=== PATIENT | male | born 1955 | race African-American/Black ===

== ENCOUNTER 2017-06-16 13:34 | Inpatient (IN) | END 2017-06-20 14:05 | disposition home or self-care (01) | DRG 313 ==

== ENCOUNTER 2017-07-17 18:12 | Emergency (ER) | END 2017-07-17 18:28 | disposition left against medical advice (07) ==

== ENCOUNTER 2017-09-22 22:20 | Inpatient (IN) | END 2017-09-24 13:00 | disposition home or self-care (01) | DRG 313 ==

== ENCOUNTER 2018-09-02 22:56 | Observation (INO) | payer MEDICARE, BC ==
[~2018-09-02] VITALS: Ht 172.7 cm; Wt 92.3 kg
[~2018-09-02 22:56] MED LIST: ALP2OP10 BOTH EYES; APIX5TAB PO; ATOR20TA65 PO; COSO10 BOTH EYES; ISOS30TA67 PO; METF500T24 PO; NITR0.4T32 SL; RANO500T2 PO; TAMS-14 PO; TRAV4OP25 BOTH EYES
[2018-09-03] MEDS ORDERED: morphine 4 MG/ML VIAL IV STA
[2018-09-03] MEDS ORDERED: ONDANSETRON 4 MG INJ IV STA
[2018-09-03] MEDS ORDERED: DOCUSATE SODIUM 100 MG CAP PO PRN (01:30)
[2018-09-03] MEDS ORDERED: BISACODYL (EC) 5 MG TAB PO PRN (01:30)
[2018-09-03] MEDS ORDERED: NACL 0.9% 3 ML SYG IV SCH (01:30)
[2018-09-03] MEDS ORDERED: NITROGLYCERIN (SL) 0.4 MG TAB SL PRN (01:30)
[2018-09-03] MEDS ORDERED: ACETAMINOPHEN 325 MG TAB PO PRN ×2 (01:30)
[2018-09-03] MEDS ORDERED: ONDANSETRON 4 MG INJ IV PRN ×2 (01:30)
[2018-09-03] MEDS ORDERED: ATOR40TA68 PO (02:30)
[2018-09-03] MEDS ORDERED: DUTA0.5C16 PO (02:30)
[2018-09-03 03:46] VITALS: BP 121/71; PULSE 81; RESP 18
[2018-09-03 04:13] VITALS: Ht 172.7 cm; Wt 92.3 kg
[2018-09-03 04:14] VITALS: BP 121/81; PULSE 82; RESP 18
[2018-09-03] MEDS: morphine 2 MG INJ IV PRN ×3 (04:25→21:28)
--- NOTE | 2018-09-03 05:06 | HP ---
Date/Time of Note Date/Time of Note DATE: 09/03/18 TIME: 04:56 Assessment/Plan VTE Prophylaxis Pharmacological prophylaxis: heparin Lines/Catheters IV Catheter Type (from Nrsg): Saline Lock Assessment/Plan Hospital Course This is a 62-year-old male being admitted to the telemetry floor for observation for: #1 chest pain: Rule out ACS. Will trend cardiac enzymes x3, the first that was negative. Will check an echocardiogram. PRN nitro/morphine for pain. Consult cardiology . #2 coronary disease: We will resume patient's home medications, will hold Eliquis at the current time in case patient needs to have any intervention performed, patient reported that he had a pacemaker placed as well however I do not see any pacer spikes will need interrogation. #3 pacemaker placement: Patient does have a pacemaker, however I do not see any pacer spikes. He is currently normal sinus rhythm. We will continue to monitor) telemetry. He will likely need interrogation will consult cardiology. #4 history of pulmonary movement: Patient has a history of a thrombectomy, IVC filter. He is currently on Eliquis ID. We will hold this at the current time in case there needs to be any intervention performed. #5 diabetes mellitus: Check hemoglobin A 1C, will hold metformin at the current time in case he needs to be a intervention performed #6 glaucoma: Continue patient's home eyedrop medications #7 hyperlipidemia: We will check lipid panel, continue statin #8 DVT GI prophylaxis: Heparin subcu, no GI prophylaxis indicated Further treatment strategy will be implemented as per the clinical course. Result Diagram: 09/02/18 2323 09/02/18 2325 Results 24hrs Laboratory Tests Test 09/02/18 23:25 White Blood Count 7.4 # Red Blood Count 4.10 L Hemoglobin 11.8 L Hematocrit 36.4 L Mean Corpuscular Volume 88.8 Mean Corpuscular Hemoglobin 28.8 L Mean Corpuscular Hemoglobin Concent 32.4 Red Cell Distribution Width 14.8 H Platelet Count 156 # Mean Platelet Volume 12.1 H Immature Granulocytes % 0.400 Neutrophils % 68.5 Lymphocytes % 17.1 Monocytes % 10.8 Eosinophils % 2.7 Basophils % 0.5 Nucleated Red Blood Cells % 0.0 Immature Granulocytes # 0.030 Neutrophils # 5.1 Lymphocytes # 1.3 Monocytes # 0.8 Eosinophils # 0.2 Basophils # 0.0 Nucleated Red Blood Cells # 0.0 Sodium Level 143 Potassium Level 3.5 Chloride Level 109 Carbon Dioxide Level 25 Anion Gap 9 Blood Urea Nitrogen 14 Creatinine 0.95 Est Glomerular Filtrat Rate mL/min > 60 Glucose Level 147 Calcium Level 9.2 Total Bilirubin 0.5 Direct Bilirubin 0.00 Indirect Bilirubin 0.5 Aspartate Amino Transf (AST/SGOT) 20 Alanine Aminotransferase (ALT/SGPT) 21 Alkaline Phosphatase 75 Troponin I < 0.012 B-Type Natriuretic Peptide 164 H Total Protein 6.7 Albumin 3.7 Globulin 3.00 Albumin/Globulin Ratio 1.23 HPI/ROS Admit Date/Time Admit Date/Time Sep 03, 2018 at 01:17 Hx of Present Illness Chief complaint: Left-sided chest pain This is a 62-year-old male with a past medical history of PE with thrombectomy in 2012, hx IVC filter placement on chronic ATC, diabetes mellitus, BPH, hyperlipidemia, glaucoma who presented to the emergency department with chest pain x1 day. Patient reports that he started having chest pain at approximately 9:30 PM. He states that it was a pressure-like sensation that radiated to the left side of his neck. He reported that the pain would come and go when he had some associated shortness of breath. Denies any swelling in his lower extremities. He does report that he went to the urgent care but it was closed to be called 911 and they brought him to the emergency department here. He states that the pain is currently subsided. Of note patient does have a left-sided pacemaker. However I do not see any pacemaker spikes on the telemetry or the EKG. Currently normal sinus rhythm at 88 bpm. Allergies: Coffee Aerobika, hydromorphone, iodine, shellfish Medications: Eliquis 5 mg p.o. twice daily Atorvastatin 30 mg 40 mg p.o. nightly Brimonidine tartrate 0.2% 1 drop in both eyes every 8 hours Dorzolamidetimolol 2% 1 drop in both eyes twice daily Dutasteride 0.5 mg p.o. daily Metformin 500 mg p.o. twice daily Nitroglycerin sublingual as needed Flomax 0.4 mg daily try dana 0.004% 1 drop both eyes nightly ROS Const: As per HPI Eyes : No pain discharge or redness or change in visual acuity ENT: No pain, sore throat, congestion, congestion, dysphagia or discharge Respiratory: No shortness of breath, cough, sputum, wheezing, or pleuritic pain Cardiovascular: As per HPI GI : no change in appetite, abdominal pain, nausea, vomiting, diarrhea, constipation, or change in the color his stool Genitourinary: No dysuria, hematuria, flank pain , discharge or CVA tenderness Musculoskeletal: No joint pain, back pain, neck pain, restricted range of motion in neck or joints Skin: No rash, bruising or hives Neuro: No headache, dizziness, syncope, seizure, focal weakness Endocrine: No polyuria, polydipsia, temperature intolerance Psych: No hallucination, depression, anxiety or suicidal ideation PMH/Family/Social Past Medical History PE with thrombectomy in 2013, hx IVC filter placement on chronic ATC, diabetes mellitus, BPH, hyperlipidemia, glaucoma, coronary artery disease Medications Current Medications Ondansetron HCl (Zofran Inj) 4 mg ER BRIDGE PRN IV NAUSEA/VOMITING; Start 09/03/18 at 01:30; Stop 09/04/18 at 01:29 Acetaminophen (Tylenol Tab) 650 mg ER BRIDGE PRN PO .MILD PAIN 1-3 OR TEMP; Start 09/03/18 at 01:30; Stop 09/04/18 at 01:29 IV Flush (NS 3 ml) 3 ml PER PROTOCOL IV ; Start 09/03/18 at 01:30 Ondansetron HCl (Zofran Inj) 4 mg Q6H PRN IV NAUSEA/VOMITING Last administered on 09/03/18at 04:32; Admin Dose 4 MG; Start 09/03/18 at 01:30 Nitroglycerin (Nitroglycerin (Sl Tab) 0.4 Mg) 1 tab Q5M PRN SL .CHEST PAIN; Start 09/03/18 at 01:30 Acetaminophen (Tylenol Tab) 650 mg Q6H PRN PO .PAIN 1-3 OR TEMP; Start 09/03/18 at 01:30 Morphine Sulfate (morphine) 2 mg Q4H PRN IV .PAIN 7-10 Last administered on 09/03/18at 04:25; Admin Dose 2 MG; Start 09/03/18 at 01:30 Docusate Sodium (Colace) 100 mg Q12H PRN PO .CONSTIPATION; Start 09/03/18 at 01:30 Bisacodyl (Dulcolax) 5 mg DAILY PRN PO .CONSTIPATION; Start 09/03/18 at 01:30 Coded Allergies: hydromorphone (Verified Allergy, Severe, 09/23/17) too strong for the pt Note: as per pt, Morphine is the choice of drug for pain for him, Dr Portillo is aware coffee (Coffea arabica) (Verified Allergy, Intermediate, 09/23/17) coffee(the drink)- can't tolerate shellfish derived (Verified Allergy, Intermediate, 09/23/17) rash iodine (Unverified Allergy, Unknown, 09/23/17) rash Past Surgical History Pacemaker placement Past Surgical Hx: other Family History Significant Family History: no pertinent family hx Social History Alcohol Use: none Smoking Status: Never smoker Drug Use: none Exam/Review of Systems Vital Signs Vitals Vital Signs Date Temp Pulse Resp B/P (MAP) Pulse Ox O2 O2 Flow FiO2 Time Delivery Rate 09/03/18 98.0 82 18 121/81 98 04:14 (94) 09/03/18 Room Air 03:46 Intake and Output 09/02/18 09/02/18 09/03/18 1515:00 23:00 07:00 IntakeIntake Total 250 ml BalanceBalance 250 ml Exam Exam General: Patient is a pleasant male currently lying in bed in no acute distress, he is currently reading a book HEENT: Atraumatic, normocephalic. The pupils are equal, round and reactive. Ex traocular motor are intact Neck: Supple with full range of motion. No rigidity or meningismus Chest: Surgical scar present Lungs: Clear to auscultation bilaterally no crackles rales or wheezing Heart: Normal S1-S2, Regular rhythm and rate. No murmur, S3, or S4 Abdomen: Obese, soft , nontender, nondistended , bowel sounds are present. No guarding no rebound tenderness , No masses or organomegaly. No costovertebral temporal angle mass Extremities: Normal to inspection, no edema no cyanosis Neurologic: Normal mental status, speech normal, cranial nerves II through XII are intact, motor and sensory are intact, no focal weakness Additional Comments EKG: Normal sinus rhythm at approximately 88 bpm, no ST or T wave noise concerning for acute ischemia. I do not see any pacemaker spikes on telemetry or on the EKG. PROCEDURE: XR Chest, 1 View CLINICAL INDICATION: Chest pain. TECHNIQUE: Frontal view of the chest. COMPARISON: 09/02/2018 at 1827 hours FINDINGS: LUNGS: Unremarkable. No consolidation. PLEURAL SPACE: Unremarkable. No pneumothorax. HEART: Mild cardiomegaly is noted. MEDIASTINUM: Unremarkable. BONES/JOINTS: Status post median sternotomy. TUBES, LINES AND DEVICES: There is a permanent pacemaker present. IMPRESSION: 1. No acute cardiopulmonary disease demonstrated. 2. There is no significant interval change from the previous study. RPTAT: [facility] Kin Summers Physician Classics Teacher Date Time Electronically viewed and signed by Kin Summers Physician Classics Teacher on 09/03/2018 00:14 RmC/ CC: CIRO MUÑOZ [phone] FILIBERTO HERRERA Sep 03, 2018 05:06
[2018-09-03] MEDS ORDERED: HEPARIN 5,000 UNIT/1 ML VIAL SC SCH (06:00)
[2018-09-03] MEDS: BRIMONIDINE 0.2% 5 ML BTL BOTH EYES SCH ×3 (06:48→21:28)
[2018-09-03 07:24] VITALS: BP 130/60; PULSE 82; RESP 18
[2018-09-03] MEDS: DUTASTERIDE 0.5 MG CAP PO SCH (09:27)
[2018-09-03] MEDS: DORZOLAMIDE/TIMOLOL/PF 0.2 ML DROPERETTE BOTH EYES SCH ×2 (09:27→20:51)
--- NOTE | 2018-09-03 10:05 | RADRPT ---
Echocardiogram Report Patient Name: CHERRIE JUNEPatient ID: [id number] : 1955 (62y 9m)Study Date: 09/03/2018 7:48:47 AM Gender: MAccession #: [id number] Tech: Deann Hough RDCS Location: [id number] Ref.Physician: FILIBERTO HERRERA Height(Cm): BSA: Weight(Kg): Quality: AdequateOrder Physician: FILIBERTO HERRERA Account #: Procedures: Echocardiographic Report: Transthoracic echocardiogram with complete 2D, M-Mode, and doppler examination. Indications: Chest Pain. Measurements: 2D/M Mode Doppler Measurement Value Normal Range Measurement Value Normal Range LVIDd 2D 4.5 [ 4.2 - 5.8 ] cm AV Peak Kenney 1.4 [ 100.0 - 170.0 ] cm/sec LVIDs 2D 2.4 [ 2.5 - 4.0 ] cm AV Peak PG 8.0 [ 2.0 - 9.0 ] mmHg LVPWd 2D 1.1 [ 0.6 - 1.0 ] cm LVOT Peak Kenney 1.1 [ 70.0 - 110.0 ] cm/sec IVSd 2D 1.3 [ 0.6 - 1.0 ] cm LVOT Peak PG 5.0 [ 2.0 - 6.0 ] mmHg AoR Diam 2D 3.2 [ 2.6 - 3.4 ] cm MV E Peak Kenney 0.9 [ 60.0 - 130.0 ] cm/sec EDV 2D 90.5 [ 62.0 - 150.0 ] ml MV A Peak Kenney 0.8 [ 100.0 - 120.0 ] cm/sec ESV 2D 21.0 [ 21.0 - 61.0 ] ml MV E/A 1.1 [ 0.8 - 1.5 ] ratio EF 2D 76.8 [ 52.0 - 72.0 ] percent MV Decel Time 165 [ 104 - 258 ] msec LA Dimen 2D 3.3 [ 3.0 - 4.0 ] cm Lat E` Kenney 0.2 [ 10.0 - 15.0 ] cm/sec Lateral E/E` 6.0 [ 1.0 - 2.0 ] ratio Med E` Kenney 0.1 cm/sec MV E/A 1.1 [ 0.8 - 1.5 ] ratio TR Peak Kenney 2.8 [ 100.0 - 280.0 ] cm/sec TR Peak PG 30.0 mmHg RVSP 40.0 [ 10.0 - 36.0 ] mmHg RA Pressure 10.0 mmHg Findings: Left Ventricle: Normal left ventricular systolic function. Normal left ventricular cavity size. Mild concentric left ventricular hypertrophy. Tissue Doppler/Mitral Doppler indices are within normal limits. Right Ventricle: Normal right ventricular size. Normal right ventricular systolic function. Left Atrium: The left atrium is normal in size. Right Atrium: The right atrium is normal in size. Mitral Valve: Mitral valve leaflets appear mildly thickened. Mild mitral annular calcification. Trace mitral regurgitation. Aortic Valve: No significant aortic stenosis or insufficiency. Aortic cusps appear mildly calcified. Tricuspid Valve: Normal appearance of the tricuspid valve. The estimated Peak RVSP is 40 mmHg. There is mild tricuspid regurgitation. Pulmonic Valve: Normal pulmonic valve appearance. Pericardium: Normal pericardium with no significant pericardial effusion. Aorta: Normal aortic root. IVC: Normal size and normal respiratory collapse consistent with normal right atrial pressure. Conclusions: Normal left ventricular systolic function. Normal left ventricular cavity size. Mild concentric left ventricular hypertrophy. Tissue Doppler/Mitral Doppler indices are within normal limits. Mitral valve leaflets appear mildly thickened. Mild mitral annular calcification. Trace mitral regurgitation. No significant aortic stenosis or insufficiency. Aortic cusps appear mildly calcified. Normal appearance of the tricuspid valve. The estimated Peak RVSP is 40 mmHg. There is mild tricuspid regurgitation. Normal size and normal respiratory collapse consistent with normal right atrial pressure. Electronically Signed By: Murphy Singer 2018-09-03 10:04:41 PDT
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
[2018-09-03 11:29] VITALS: BP 116/62; PULSE 70; RESP 18
[2018-09-03 15:44] VITALS: BP 127/66; PULSE 75; RESP 18
--- NOTE | 2018-09-03 17:20 | PN ---
Date/Time of Note Date/Time of Note DATE: 09/03/18 TIME: 17:15 Assessment/Plan VTE Prophylaxis Risk score (from Nsg)>0 risk: 2 SCD applied (from Nsg): No SCD contraindicated: other (no) Pharmacological prophylaxis: LMWH Lines/Catheters IV Catheter Type (from Nrsg): Saline Lock Assessment/Plan Assessment/Plan This is a 62 yo man with history of CAD and pulmonary embolism presents with acute chest pain. # Chest pain - Trop negative x3. - History of frequent ED visits for anginal chest pain. - At this point will likely need cardiac cath. In the past patient has refused cath at the last minute after getting premedication with prednisone and benadryl. - Plan to transfer to [facility] or [facility] for cath. Or if patient is asymptomatic for 24 hours will consider discharge. - Dr. Singer following. #Pulmonary embolism - On eliquis at home. Lovenox while inpatient. # diabetes mellitus: Check hemoglobin A 1C, will hold metformin at the current time in case he needs to be a intervention performed # glaucoma: Continue patient's home eyedrop medications # hyperlipidemia: We will check lipid panel, continue statin # DVT GI prophylaxis: Heparin subcu, no GI prophylaxis indicated Result Diagram: 09/03/18 0734 09/03/18 0734 Subjective 24 Hr Interval Summary Free Text/Dictation No acute overnight events. Patient reports chest pain has resolved. Exam/Review of Systems Exam Vitals Vital Signs Date Temp Pulse Resp B/P (MAP) Pulse Ox O2 O2 Flow FiO2 Time Delivery Rate 09/03/18 98.7 75 18 127/66 96 15:44 (86) 09/03/18 Room Air 03:46 Intake and Output 09/02/18 09/02/18 09/03/18 1515:00 23:00 07:00 IntakeIntake Total 250 ml BalanceBalance 250 ml Exam General: Patient is a pleasant male currently lying in bed in no acute distress, he is currently reading a book HEENT: Atraumatic, normocephalic. The pupils are equal, round and reactive. Extraocular motor are intact Neck: Supple with full range of motion. No rigidity or meningismus Chest: Sternotomy scar well healed, L upper chest AICD pocket. Lungs: Clear to auscultation bilaterally no crackles rales or wheezing Heart: Normal S1-S2, Regular rhythm and rate. No murmur, S3, or S4 Abdomen: Obese, soft , nontender, nondistended , bowel sounds are present. No guarding no rebound tenderness , No masses or organomegaly. No costovertebral temporal angle mass Extremities: Normal to inspection, no edema no cyanosis Results Results 24hrs Laboratory Tests Test 09/02/18 23:25 09/03/18 07:34 09/03/18 10:54 White Blood Count 7.4 # 6.2 Red Blood Count 4.10 L 3.98 L Hemoglobin 11.8 L 11.2 L Hematocrit 36.4 L 35.4 L Mean Corpuscular Volume 88.8 88.9 Mean Corpuscular Hemoglobin 28.8 L 28.1 L Mean Corpuscular Hemoglobin Concent 32.4 31.6 L Red Cell Distribution Width 14.8 H 14.8 H Platelet Count 156 # 145 Mean Platelet Volume 12.1 H 12.8 H Immature Granulocytes % 0.400 0.500 H Neutrophils % 68.5 66.7 Lymphocytes % 17.1 17.9 Monocytes % 10.8 11.9 H Eosinophils % 2.7 2.4 Basophils % 0.5 0.6 Nucleated Red Blood Cells % 0.0 0.0 Immature Granulocytes # 0.030 0.030 Neutrophils # 5.1 4.1 Lymphocytes # 1.3 1.1 Monocytes # 0.8 0.7 Eosinophils # 0.2 0.2 Basophils # 0.0 0.0 Nucleated Red Blood Cells # 0.0 0.0 Sodium Level 143 141 Potassium Level 3.5 3.6 Chloride Level 109 108 Carbon Dioxide Level 25 24 Anion Gap 9 9 Blood Urea Nitrogen 14 13 Creatinine 0.95 0.91 Est Glomerular Filtrat Rate mL/min > 60 > 60 Glucose Level 147 263 #H Calcium Level 9.2 8.6 Total Bilirubin 0.5 0.5 Direct Bilirubin 0.00 0.00 Indirect Bilirubin 0.5 0.5 Aspartate Amino Transf (AST/SGOT) 20 20 Alanine Aminotransferase (ALT/SGPT) 21 22 Alkaline Phosphatase 75 71 Troponin I < 0.012 < 0.012 < 0.012 B-Type Natriuretic Peptide 164 H Total Protein 6.7 6.0 L Albumin 3.7 3.2 L Globulin 3.00 2.80 Albumin/Globulin Ratio 1.23 1.14 Hemoglobin A1c 6.7 H Magnesium Level 1.8 Creatine Kinase 123 119 Creatine Kinase Index 1.6 1.5 Creatinine Kinase MB (Mass) 1.94 1.77 Triglycerides Level 195 H Cholesterol Level 140 LDL Cholesterol, Calculated 62 HDL Cholesterol 39 Cholesterol/HDL Ratio 3.5 Thyroid Stimulating Hormone (TSH) 2.860 Medications Medication Current Medications Ondansetron HCl (Zofran Inj) 4 mg ER BRIDGE PRN IV NAUSEA/VOMITING; Start 09/03/18 at 01:30; Stop 09/04/18 at 01:29 Acetaminophen (Tylenol Tab) 650 mg ER BRIDGE PRN PO .MILD PAIN 1-3 OR TEMP; Start 09/03/18 at 01:30; Stop 09/04/18 at 01:29 IV Flush (NS 3 ml) 3 ml PER PROTOCOL IV ; Start 09/03/18 at 01:30 Ondansetron HCl (Zofran Inj) 4 mg Q6H PRN IV NAUSEA/VOMITING Last administered on 09/03/18at 04:32; Admin Dose 4 MG; Start 09/03/18 at 01:30 Nitroglycerin (Nitroglycerin (Sl Tab) 0.4 Mg) 1 tab Q5M PRN SL .CHEST PAIN; Start 09/03/18 at 01:30 Acetaminophen (Tylenol Tab) 650 mg Q6H PRN PO .PAIN 1-3 OR TEMP; Start 09/03/18 at 01:30 Docusate Sodium (Colace) 100 mg Q12H PRN PO .CONSTIPATION; Start 09/03/18 at 01:30 Bisacodyl (Dulcolax) 5 mg DAILY PRN PO .CONSTIPATION; Start 09/03/18 at 01:30 Atorvastatin Calcium (Lipitor) 40 mg QHS PO ; Start 09/03/18 at 21:00 Brimonidine Tartrate (Alphagan 0.2%) 1 drop Q8 BOTH EYES Last administered on 09/03/18at 13:40; Admin Dose 1 DROP; Start 09/03/18 at 06:00 Dorzolamide/ Timolol (Cosopt Pf Eye Drops) 1 drop BID BOTH EYES Last administered on 09/03/18at 09:27; Admin Dose 1 DROP; Start 09/03/18 at 09:00 Dutasteride (Avodart) 0.5 mg DAILY PO Last administered on 09/03/18at 09:27; Admin Dose 0.5 MG; Start 09/03/18 at 09:00 Tamsulosin HCl (Flomax) 0.4 mg DAILY@2100 PO ; Start 09/03/18 at 21:00 Latanoprost (Xalatan) 1 drop HS BOTH EYES ; Start 09/03/18 at 21:00 Enoxaparin Sodium (Lovenox) 90 mg Q12 SC ; Start 09/03/18 at 21:00 KAMILLE CALIXTO MD Sep 03, 2018 17:20
[2018-09-03 19:27] VITALS: BP 116/75; PULSE 73; RESP 18
[2018-09-03] MEDS: TAMSULOSIN (SR) 0.4 MG CAP PO SCH (20:51)
[2018-09-03] MEDS: ATORVASTATIN 40 MG TAB PO SCH (20:51)
[2018-09-03] MEDS: LATANOPROST 0.005% 2.5 ML OPH BOTH EYES SCH (20:52)
[2018-09-03] MEDS ORDERED: TRAVOPROST 0.004% 2.5 ML OPH BOTH EYES SCH (21:00)
[2018-09-03] MEDS: ENOXAPARIN 100 MG/ML SYG SC SCH (21:11)
[2018-09-04] VITALS: BP 120/72; PULSE 75; RESP 18
[2018-09-04] MEDS: morphine 2 MG INJ IV PRN ×2 (04:25→10:35)
[2018-09-04 04:34] VITALS: BP 117/75; PULSE 73; RESP 18
[2018-09-04] MEDS: BRIMONIDINE 0.2% 5 ML BTL BOTH EYES SCH ×3 (05:35→22:00)
[2018-09-04 07:35] VITALS: BP 104/65; PULSE 68; RESP 18
[2018-09-04] MEDS: DORZOLAMIDE/TIMOLOL/PF 0.2 ML DROPERETTE BOTH EYES SCH ×2 (09:25→21:11)
[2018-09-04] MEDS: DUTASTERIDE 0.5 MG CAP PO SCH (09:25)
[2018-09-04] MEDS: ENOXAPARIN 100 MG/ML SYG SC SCH ×2 (09:26→21:18)
[2018-09-04 11:04] VITALS: BP 123/65; PULSE 68; RESP 18
--- NOTE | 2018-09-04 14:40 | PDOCDIS ---
Discharge Instructions DIAGNOSIS Discharge Diagnosis Noncardiac chest pain CONDITION [id number] Patient Condition: [id number] Fair HOME CARE INSTRUCTIONS: [id number] Diet Instructions: [id number] Low Fat /Cholesterol ACTIVITY: [id number] Activity Restrictions: [id number] No Restrictions FOLLOW UP/APPOINTMENTS Follow-up Plan 1. 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 2. Make an appointment with your primary care doctor in 1-2 weeks. 3. For pressure-like chest discomfort that does not resolve with rest, return to the emergency room. KAMILLE CALIXTO MD Sep 04, 2018 14:40
[2018-09-04 15:26] VITALS: BP 121/71; PULSE 68; RESP 18
--- NOTE | 2018-09-04 17:08 | CONS ---
Consult Date/Type/Reason Admit Date/Time Sep 03, 2018 at 01:17 Initial Consult Date 09/03/18 Type of Consultation: CV Requesting Provider: FILIBERTO HERRERA Date/Time of Note DATE: 09/04/18 TIME: 17:03 Subjective Cardiology follow-up progress note Subjective: Discussed with the staff. Discussed with the physicians. PT still c/o sharp shooting left sided chest pain lasting 15 seconds and he has been asking for morphine for it stress test was ordered today but he refused his recent stress test results was obtained which shows no reversible ischemia O: General: no acute distress HEENT: NC/AT. pupils are equal. round. NECK: NO JVD. no stridor. CV: RRR. systolic murmur; no gallop or rubs. PULM: no wheezing or rhonchi. GI: SOFT, NT, ND, no rebound or guarding Extremity: trace B/L LE edema. no clubbing. neuro: awake and alert, OX3. Psych: calm and pleasant rectal: deferred : normal EKG normal sinus rhythm patient enlargement otherwise normal ECG Echocardiogram was personally reviewed showed normal LV size and systolic function: lexiscan 08/07/18 done at [facility] shows mild NONreversible perfusionabn in inf wall which favor soft tissue attenuation Objective Vitals Vital Signs Date Temp Pulse Resp B/P (MAP) Pulse Ox O2 O2 Flow FiO2 Time Delivery Rate 09/04/18 98.0 68 18 121/71 96 Room Air 15:26 (88) Intake and Output 09/03/18 09/03/18 09/04/18 1515:00 23:00 07:00 IntakeIntake Total 500 ml BalanceBalance 500 ml Results/Medications Result Diagram: 09/04/18 0555 09/04/18 0555 Results 24 hrs Laboratory Tests Test 09/04/18 05:55 White Blood Count 6.1 Red Blood Count 4.43 L Hemoglobin 12.4 L Hematocrit 39.1 L Mean Corpuscular Volume 88.3 Mean Corpuscular Hemoglobin 28.0 L Mean Corpuscular Hemoglobin Concent 31.7 L Red Cell Distribution Width 14.7 H Platelet Count 154 Mean Platelet Volume 11.6 H Immature Granulocytes % 0.500 H Neutrophils % 68.8 Lymphocytes % 17.0 Monocytes % 10.4 Eosinophils % 2.8 Basophils % 0.5 Nucleated Red Blood Cells % 0.0 Immature Granulocytes # 0.030 Neutrophils # 4.2 Lymphocytes # 1.0 Monocytes # 0.6 Eosinophils # 0.2 Basophils # 0.0 Nucleated Red Blood Cells # 0.0 Sodium Level 138 Potassium Level 4.0 Chloride Level 107 Carbon Dioxide Level 23 Anion Gap 8 Blood Urea Nitrogen 13 Creatinine 0.98 Est Glomerular Filtrat Rate mL/min > 60 Glucose Level 168 Calcium Level 9.0 Magnesium Level 1.9 Total Bilirubin 0.6 Direct Bilirubin 0.00 Indirect Bilirubin 0.6 Aspartate Amino Transf (AST/SGOT) 20 Alanine Aminotransferase (ALT/SGPT) 27 Alkaline Phosphatase 67 Creatine Kinase 91 Creatine Kinase Index 1.5 Creatinine Kinase MB (Mass) 1.33 Troponin I < 0.012 Total Protein 6.7 Albumin 3.5 Globulin 3.20 Albumin/Globulin Ratio 1.09 Triglycerides Level 213 H Cholesterol Level 165 LDL Cholesterol, Calculated 77 HDL Cholesterol 45 Cholesterol/HDL Ratio 3.6 Thyroid Stimulating Hormone (TSH) 1.690 Home Meds Active Scripts Nitroglycerin* (Nitroglycerin* SL) 0.4 Mg Tab.subl, 0.4 MG SL Q5MIN PRN for CH EST PAIN, #1 BOTTLE Prov:TARAS YOUNG 09/24/17 Reported Medications Atorvastatin* (Atorvastatin*) 40 Mg Tablet, 40 MG PO QHS for 30 Days, #30 TAB 09/03/18 Dutasteride (Dutasteride) 0.5 Mg Capsule, 0.5 MG PO DAILY for 30 Days, #30 CAP 09/03/18 Tamsulosin Hcl* (Flomax*) 0.4 Mg Cap.er.24h, 0.4 MG PO DAILY, CAP 06/14/17 Apixaban* (Eliquis*) 5 Mg Tablet, 5 MG PO BID, TAB 06/14/17 Metformin Hcl* (Metformin Hcl*) 500 Mg Tablet, 500 MG PO WITH BREAKFAST DINNE, #60 TAB 06/14/17 Brimonidine Tartrate* (Alphagan*) 0.2%-10 Ml Opht Drops, 1 DROP BOTH EYES Q8, BOTTLE 04/09/14 Travoprost* (Travatan*) 0.004%-2.5 Ml Opht, 1 DROP BOTH EYES HS, EA 04/09/14 Dorzolamide-Timolol* (Cosopt*) 2%-0.5% Soln, 1 DROP BOTH EYES BID, BOTTLE 04/09/14 Discontinued Scripts Atorvastatin Calcium (Atorvastatin Calcium) 20 Mg Tablet, 20 MG PO HS, #60 TAB Prov:TARAS YOUNG 09/24/17 Ranolazine* (Ranexa*) 500 Mg Tab.sr.12h, 500 MG PO Q12, #60 TAB Prov:TARAS YOUNG 09/24/17 Isosorbide Mononitrate* (Isosorbide Mononitrate*) 30 Mg Tab.er.24h, 30 MG PO DAILY, #60 TAB Prov:TARAS YOUNG 09/24/17 Medications Current Medications IV Flush (NS 3 ml) 3 ml PER PROTOCOL IV ; Start 09/03/18 at 01:30 Ondansetron HCl (Zofran Inj) 4 mg Q6H PRN IV NAUSEA/VOMITING Last administered on 09/03/18at 04:32; Admin Dose 4 MG; Start 09/03/18 at 01:30 Nitroglycerin (Nitroglycerin (Sl Tab) 0.4 Mg) 1 tab Q5M PRN SL .CHEST PAIN; Start 09/03/18 at 01:30 Acetaminophen (Tylenol Tab) 650 mg Q6H PRN PO .PAIN 1-3 OR TEMP; Start 09/03/18 at 01:30 Docusate Sodium (Colace) 100 mg Q12H PRN PO .CONSTIPATION; Start 09/03/18 at 01:30 Bisacodyl (Dulcolax) 5 mg DAILY PRN PO .CONSTIPATION; Start 09/03/18 at 01:30 Atorvastatin Calcium (Lipitor) 40 mg QHS PO Last administered on 09/03/18at 20:51; Admin Dose 40 MG; Start 09/03/18 at 21:00 Brimonidine Tartrate (Alphagan 0.2%) 1 drop Q8 BOTH EYES Last administered on 09/04/18at 05:35; Admin Dose 1 DROP; Start 09/03/18 at 06:00 Dorzolamide/ Timolol (Cosopt Pf Eye Drops) 1 drop BID BOTH EYES Last administered on 09/04/18 09:25; Admin Dose 1 DROP; Start 09/03/18 at 09:00 Dutasteride (Avodart) 0.5 mg DAILY PO Last administered on 7/12/19at 09:25; Admin Dose 0.5 MG; Start 09/03/18 at 09:00 Tamsulosin HCl (Flomax) 0.4 mg DAILY@2100 PO Last administered on 09/03/18at 20:51; Admin Dose 0.4 MG; Start 09/03/18 at 21:00 Latanoprost (Xalatan) 1 drop HS BOTH EYES Last administered on 09/03/18at 20:52; Admin Dose 1 DROP; Start 09/03/18 at 21:00 Enoxaparin Sodium (Lovenox) 90 mg Q12 SC Last administered on 09/04/18at 09:26; Admin Dose 90 MG; Start 09/03/18 at 21:00 Assessment/Plan Hospital Course (Demo Recall) Chest pain: Appears to be atypical and recent stress test in July 2018 did NOT show ischemia History of pulmonary embolus on anticoagulation at home History of sick sinus syndrome Status post permanent pacemaker Possible pain seeking behavior Recommendations: cont home meds ok for dc pacemaker was interrogated and reviewed 09/03/18 whichs shows normal function 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
--- NOTE | 2018-09-04 19:38 | PN ---
Date/Time of Note Date/Time of Note DATE: 09/04/18 TIME: 19:35 Assessment/Plan VTE Prophylaxis Risk score (from Nsg)>0 risk: 2 SCD applied (from Nsg): Yes Pharmacological prophylaxis: NA/contraindicated Pharm contraindication: low risk/ambulating Lines/Catheters IV Catheter Type (from Nrsg): Saline Lock Assessment/Plan Assessment/Plan This is a 62 yo man with history of CAD and pulmonary embolism presents with acute chest pain. # Chest pain - Trop negative x3. - History of frequent ED visits for anginal chest pain. - Recent stress test 08/07 negative for ischemia - At this point chest pain is very unlikely cardiac. - Dr. Singer following. - Patient will not give detailed history about the nature of pain, making it difficult to narrow the differential. - Medically clear for discharge. #Pulmonary embolism - On eliquis at home. Lovenox while inpatient. # diabetes mellitus: Check hemoglobin A 1C, will hold metformin at the current time in case he needs to be a intervention performed # glaucoma: Continue patient's home eyedrop medications # hyperlipidemia: We will check lipid panel, continue statin # DVT GI prophylaxis: Heparin subcu, no GI prophylaxis indicated Dispo: Medically clear for discharge. Result Diagram: 09/04/18 0555 09/04/18 0555 Subjective 24 Hr Interval Summary Free Text/Dictation Patient he reports he is still having chest pain. Will not specify further. Got records from [facility] today; he had negative stress test on 08/07. Offered patient discharge, I spoke to him and Dr. Singer also. He declined discharge and is appealing through [employer]. He would not elaborate further why he is appealing. Exam/Review of Systems Exam Vitals Vital Signs Date Temp Pulse Resp B/P (MAP) Pulse Ox O2 O2 Flow FiO2 Time Delivery Rate 09/04/18 98.0 68 18 121/71 96 Room Air 15:26 (88) Intake and Output 09/03/18 09/03/18 09/04/18 1515:00 23:00 07:00 IntakeIntake Total 500 ml BalanceBalance 500 ml Exam General: Patient is man currently lying in bed in no acute distress, he is currently reading a book HEENT: Atraumatic, normocephalic. The pupils are equal, round and reactive. Extraocular motor are intact Neck: Supple with full range of motion. No rigidity or meningismus Chest: Sternotomy scar well healed, L upper chest AICD pocket. Lungs: Clear to auscultation bilaterally no crackles rales or wheezing Heart: Normal S1-S2, Regular rhythm and rate. No murmur, S3, or S4 Abdomen: Obese, soft , nontender, nondistended , bowel sounds are present. No guarding no rebound tenderness , No masses or organomegaly. No costovertebral temporal angle mass Extremities: Normal to inspection, no edema no cyanosis Results Results 24hrs Laboratory Tests Test 09/04/18 05:55 White Blood Count 6.1 Red Blood Count 4.43 L Hemoglobin 12.4 L Hematocrit 39.1 L Mean Corpuscular Volume 88.3 Mean Corpuscular Hemoglobin 28.0 L Mean Corpuscular Hemoglobin Concent 31.7 L Red Cell Distribution Width 14.7 H Platelet Count 154 Mean Platelet Volume 11.6 H Immature Granulocytes % 0.500 H Neutrophils % 68.8 Lymphocytes % 17.0 Monocytes % 10.4 Eosinophils % 2.8 Basophils % 0.5 Nucleated Red Blood Cells % 0.0 Immature Granulocytes # 0.030 Neutrophils # 4.2 Lymphocytes # 1.0 Monocytes # 0.6 Eosinophils # 0.2 Basophils # 0.0 Nucleated Red Blood Cells # 0.0 Sodium Level 138 Potassium Level 4.0 Chloride Level 107 Carbon Dioxide Level 23 Anion Gap 8 Blood Urea Nitrogen 13 Creatinine 0.98 Est Glomerular Filtrat Rate mL/min > 60 Glucose Level 168 Calcium Level 9.0 Magnesium Level 1.9 Total Bilirubin 0.6 Direct Bilirubin 0.00 Indirect Bilirubin 0.6 Aspartate Amino Transf (AST/SGOT) 20 Alanine Aminotransferase (ALT/SGPT) 27 Alkaline Phosphatase 67 Creatine Kinase 91 Creatine Kinase Index 1.5 Creatinine Kinase MB (Mass) 1.33 Troponin I < 0.012 Total Protein 6.7 Albumin 3.5 Globulin 3.20 Albumin/Globulin Ratio 1.09 Triglycerides Level 213 H Cholesterol Level 165 LDL Cholesterol, Calculated 77 HDL Cholesterol 45 Cholesterol/HDL Ratio 3.6 Thyroid Stimulating Hormone (TSH) 1.690 Medications Medication Current Medications IV Flush (NS 3 ml) 3 ml PER PROTOCOL IV ; Start 09/03/18 at 01:30 Ondansetron HCl (Zofran Inj) 4 mg Q6H PRN IV NAUSEA/VOMITING Last administered on 09/03/18at 04:32; Admin Dose 4 MG; Start 09/03/18 at 01:30 Nitroglycerin (Nitroglycerin (Sl Tab) 0.4 Mg) 1 tab Q5M PRN SL .CHEST PAIN; Start 09/03/18 at 01:30 Acetaminophen (Tylenol Tab) 650 mg Q6H PRN PO .PAIN 1-3 OR TEMP; Start 09/03/18 at 01:30 Docusate Sodium (Colace) 100 mg Q12H PRN PO .CONSTIPATION; Start 09/03/18 at 01:30 Bisacodyl (Dulcolax) 5 mg DAILY PRN PO .CONSTIPATION; Start 09/03/18 at 01:30 Atorvastatin Calcium (Lipitor) 40 mg QHS PO Last administered on 09/03/18 20:51; Admin Dose 40 MG; Start 09/03/18 at 21:00 Brimonidine Tartrate (Alphagan 0.2%) 1 drop Q8 BOTH EYES Last administered on 09/04/18 05:35; Admin Dose 1 DROP; Start 09/03/18 at 06:00 Dorzolamide/ Timolol (Cosopt Pf Eye Drops) 1 drop BID BOTH EYES Last administe red on 09/04/18 09:25; Admin Dose 1 DROP; Start 09/03/18 at 09:00 Dutasteride (Avodart) 0.5 mg DAILY PO Last administered on 09/04/18 09:25; Admin Dose 0.5 MG; Start 09/03/18 at 09:00 Tamsulosin HCl (Flomax) 0.4 mg DAILY@2100 PO Last administered on 09/03/18 20:51; Admin Dose 0.4 MG; Start 09/03/18 at 21:00 Latanoprost (Xalatan) 1 drop HS BOTH EYES Last administered on 09/03/18 20:52; Admin Dose 1 DROP; Start 09/03/18 at 21:00 Enoxaparin Sodium (Lovenox) 90 mg Q12 SC Last administered on 09/04/18 09:26; Admin Dose 90 MG; Start 09/03/18 at 21:00 KAMILLE CALIXTO MD Sep 04, 2018 19:38
[2018-09-04 19:55] VITALS: BP 123/70; PULSE 76; RESP 16
[2018-09-04] MEDS: ATORVASTATIN 40 MG TAB PO SCH (21:11)
[2018-09-04] MEDS: TAMSULOSIN (SR) 0.4 MG CAP PO SCH (21:11)
[2018-09-04] MEDS: LATANOPROST 0.005% 2.5 ML OPH BOTH EYES SCH (21:12)
[2018-09-05 04:37] VITALS: BP 110/69; PULSE 68; RESP 18
[2018-09-05] MEDS: BRIMONIDINE 0.2% 5 ML BTL BOTH EYES SCH ×3 (05:52→21:20)
[2018-09-05 07:32] VITALS: BP 107/61; PULSE 65; RESP 18
[2018-09-05] MEDS: DUTASTERIDE 0.5 MG CAP PO SCH (08:15)
[2018-09-05] MEDS: DORZOLAMIDE/TIMOLOL/PF 0.2 ML DROPERETTE BOTH EYES SCH ×2 (08:15→21:16)
[2018-09-05] MEDS: ENOXAPARIN 100 MG/ML SYG SC SCH ×2 (08:21→21:33)
--- NOTE | 2018-09-05 10:35 | PN ---
Date/Time of Note Date/Time of Note DATE: 09/05/18 TIME: 10:29 Assessment/Plan VTE Prophylaxis Risk score (from Nsg)>0 risk: 2 SCD applied (from Ns): No SCD contraindicated: low risk/ambulating Pharmacological prophylaxis: NA/contraindicated Pharm contraindication: low risk/ambulating Lines/Catheters IV Catheter Type (from Nrs): Saline Lock Assessment/Plan Assessment/Plan This is a 62 yo man with history of CAD and pulmonary embolism presents with acute chest pain. # Chest pain - Trop negative x3. - History of frequent ED visits for anginal chest pain, and frequently appeals hospital discharge. - Last time Dr. Singer tried to do a cardiac cath the patient got the 13 hour premedication for contrast dye allergy then left AMA before the procedure. - Recent stress test 08/07 negative for ischemia - At this point chest pain is very unlikely cardiac. - Dr. Singer following. - Patient will not give detailed history about the nature of pain, making it difficult to narrow the differential. - Medically clear for discharge. #History of malingering - The patient has history of using public and private health care resources for personal gain. #Pulmonary embolism - On eliquis at home. Lovenox while inpatient. # diabetes mellitus: Check hemoglobin A 1C, will hold metformin at the current time in case he needs to be a intervention performed # glaucoma: Continue patient's home eyedrop medications # hyperlipidemia: We will check lipid panel, continue statin # DVT GI prophylaxis: Heparin subcu, no GI prophylaxis indicated Dispo: Medically clear for discharge. The patient is appealing discharge through medicare. Result Diagram: 09/04/18 0555 09/04/18 0555 Subjective 24 Hr Interval Summary Free Text/Dictation Patient appealed discharge yesterday. This morning had nonproductive conversation with patient in which he explained he is still having chest pain, which is why he appealed discharge. Could not elaborate chest pain further. I asked if he did want the cardiac cath, but he answered most questions with "you don't understand, it's up to [employer] now. They have to do the paperwork". Exam/Review of Systems Exam Vitals Vital Signs Date Temp Pulse Resp B/P (MAP) Pulse Ox O2 O2 Flow FiO2 Time Delivery Rate 09/05/18 98.2 65 18 107/61 97 Room Air 07:32 (76) Intake and Output 09/04/18 09/04/18 09/05/18 1515:00 23:00 07:00 IntakeIntake Total 320 ml 480 ml 480 ml BalanceBalance 320 ml 480 ml 480 ml Exam General: Patient is man currently lying in bed in no acute distress, he is currently reading a book HEENT: Atraumatic, normocephalic. The pupils are equal, round and reactive. Extraocular motor are intact Neck: Supple with full range of motion. No rigidity or meningismus Chest: Sternotomy scar well healed, L upper chest AICD pocket. Lungs: Clear to auscultation bilaterally no crackles rales or wheezing Heart: Normal S1-S2, Regular rhythm and rate. No murmur, S3, or S4 Abdomen: Obese, soft , nontender, nondistended , bowel sounds are present. No guarding no rebound tenderness , No masses or organomegaly. No costovertebral temporal angle mass Extremities: Normal to inspection, no edema no cyanosis Medications Medication Current Medications IV Flush (NS 3 ml) 3 ml PER PROTOCOL IV ; Start 09/03/18 at 01:30 Ondansetron HCl (Zofran Inj) 4 mg Q6H PRN IV NAUSEA/VOMITING Last administered on 09/03/18at 04:32; Admin Dose 4 MG; Start 09/03/18 at 01:30 Nitroglycerin (Nitroglycerin (Sl Tab) 0.4 Mg) 1 tab Q5M PRN SL .CHEST PAIN; Start 09/03/18 at 01:30 Acetaminophen (Tylenol Tab) 650 mg Q6H PRN PO .PAIN 1-3 OR TEMP; Start 09/03/18 at 01:30 Docusate Sodium (Colace) 100 mg Q12H PRN PO .CONSTIPATION Last administered on 09/05/18at 08:24; Admin Dose 100 MG; Start 09/03/18 at 01:30 Bisacodyl (Dulcolax) 5 mg DAILY PRN PO .CONSTIPATION; Start 09/03/18 at 01:30 Atorvastatin Calcium (Lipitor) 40 mg QHS PO Last administered on 09/04/18at 21:11; Admin Dose 40 MG; Start 09/03/18 at 21:00 Brimonidine Tartrate (Alphagan 0.2%) 1 drop Q8 BOTH EYES Last administered on 09/05/18 05:52; Admin Dose 1 DROP; Start 09/03/18 at 06:00 Dorzolamide/ Timolol (Cosopt Pf Eye Drops) 1 drop BID BOTH EYES Last administered on 09/05/18 08:15; Admin Dose 1 DROP; Start 09/03/18 at 09:00 Dutasteride (Avodart) 0.5 mg DAILY PO Last administered on 09/05/18 08:15; Admin Dose 0.5 MG; Start 09/03/18 at 09:00 Tamsulosin HCl (Flomax) 0.4 mg DAILY@2100 PO Last administered on 09/04/18 21:11; Admin Dose 0.4 MG; Start 09/03/18 at 21:00 Latanoprost (Xalatan) 1 drop HS BOTH EYES Last administered on 09/04/18 21:12; Admin Dose 1 DROP; Start 09/03/18 at 21:00 Enoxaparin Sodium (Lovenox) 90 mg Q12 SC Last administered on 09/05/18 08:21; Admin Dose 90 MG; Start 09/03/18 at 21:00 KAMILLE CALIXTO MD Sep 05, 2018 10:35
[2018-09-05 11:02] VITALS: BP 111/66; PULSE 66; RESP 18
[2018-09-05 15:11] VITALS: BP 121/63; PULSE 63; RESP 18
[2018-09-05 20:00] VITALS: BP 118/66; PULSE 77; RESP 18
[2018-09-05] MEDS: LATANOPROST 0.005% 2.5 ML OPH BOTH EYES SCH (21:16)
[2018-09-05] MEDS: TAMSULOSIN (SR) 0.4 MG CAP PO SCH (21:19)
[2018-09-05] MEDS: ATORVASTATIN 40 MG TAB PO SCH (21:19)
[2018-09-05] MEDS ORDERED: traMADol 50 MG TAB PO PRN (22:00)
[2018-09-05 22:20] VITALS: BP 106/65; PULSE 69; RESP 18
[2018-09-06 01:53] VITALS: BP 102/59; PULSE 70; RESP 18
[2018-09-06] MEDS: BRIMONIDINE 0.2% 5 ML BTL BOTH EYES SCH (05:12)
[2018-09-06] MEDS: DUTASTERIDE 0.5 MG CAP PO SCH (09:04)
[2018-09-06] MEDS: DORZOLAMIDE/TIMOLOL/PF 0.2 ML DROPERETTE BOTH EYES SCH (09:04)
[2018-09-06] MEDS: ENOXAPARIN 100 MG/ML SYG SC SCH (09:05)
--- NOTE | 2018-09-06 12:33 | DS ---
Date/Time of Note Date/Time of Note DATE: 09/06/18 TIME: 12:28 Discharge Summary Admission/Discharge Info Admit Date/Time Sep 03, 2018 at 01:17 Discharge Date/Time Sep 06, 2018 at 12:00 Discharge Diagnosis Noncardiac chest pain Patient Condition: Good Consults Dr. Singer, cardiology Hx of Present Illness Chief complaint: Left-sided chest pain This is a 62-year-old man with a past medical history of PE with thrombectomy in 2012, hx IVC filter placement on chronic ATC, diabetes mellitus, BPH, hyperlipidemia, glaucoma who presented to the emergency department with chest pain x1 day. Patient reports that he started having chest pain at approximately 9:30 PM. He states that it was a pressure-like sensation that radiated to the left side of his neck. He reported that the pain would come and go when he had some associated shortness of breath. Denies any swelling in his lower extremities. He does report that he went to the urgent care but it was closed to be called 911 and they brought him to the emergency department here. He states that the pain is currently subsided. Of note patient does have a left-sided pacemaker. However I do not see any pacemaker spikes on the telemetry or the EKG. Currently normal sinus rhythm at 88 bpm. Allergies: Coffee Aerobika, hydromorphone, iodine, shellfish Medications: Eliquis 5 mg p.o. twice daily Atorvastatin 30 mg 40 mg p.o. nightly Brimonidine tartrate 0.2% 1 drop in both eyes every 8 hours Dorzolamidetimolol 2% 1 drop in both eyes twice daily Dutasteride 0.5 mg p.o. daily Metformin 500 mg p.o. twice daily Nitroglycerin sublingual as needed Flomax 0.4 mg daily try dana 0.004% 1 drop both eyes nightly Hospital Course The patient got an EKG which was negative for ischemia, and troponins which were negative x3. He did continue to report intermittent chest pain but grew less cooperative with daily exams. At first, we planned for transfer to another facility to get cardiac cath due to frequent ED visits for chest pain. But then we obtained further collateral history. Of note, the patient has history of frequent ED visits for anginal chest pain, and frequently appeals hospital discharge. Last time Dr. Singer tried to do a cardiac cath the patient got the 13 hour premedication for contrast dye allergy then left AMA before the procedure. He had a recent stress test 08/07 at [facility] which was negative for ischemia. At this point we determined the chest pain, if it exists, is noncardiac. The patient was discharged, but refused to leave. He tried to appeal the discharge via [employer] but this is not an option because he was not admitted, he is under observation. The patient remained for a day on [facility] then eventually was persuaded to leave. Home Meds Active Scripts Nitroglycerin* (Nitroglycerin* SL) 0.4 Mg Tab.subl, 0.4 MG SL Q5MIN PRN for CHEST PAIN, #1 BOTTLE Prov:TARAS YOUNG 09/24/17 Reported Medications Atorvastatin* (Atorvastatin*) 40 Mg Tablet, 40 MG PO QHS for 30 Days, #30 TAB 09/03/18 Dutasteride (Dutasteride) 0.5 Mg Capsule, 0.5 MG PO DAILY for 30 Days, #30 CAP 09/03/18 Tamsulosin Hcl* (Flomax*) 0.4 Mg Cap.er.24h, 0.4 MG PO DAILY, CAP 06/14/17 Apixaban* (Eliquis*) 5 Mg Tablet, 5 MG PO BID, TAB 06/14/17 Metformin Hcl* (Metformin Hcl*) 500 Mg Tablet, 500 MG PO WITH BREAKFAST DINNE, #60 TAB 06/14/17 Brimonidine Tartrate* (Alphagan*) 0.2%-10 Ml Opht Drops, 1 DROP BOTH EYES Q8, BOTTLE 04/09/14 Travoprost* (Travatan*) 0.004%-2.5 Ml Opht, 1 DROP BOTH EYES HS, EA 04/09/14 Dorzolamide-Timolol* (Cosopt*) 2%-0.5% Soln, 1 DROP BOTH EYES BID, BOTTLE 04/09/14 Discontinued Scripts Atorvastatin Calcium (Atorvastatin Calcium) 20 Mg Tablet, 20 MG PO HS, #60 TAB Prov:TARAS YOUNG 09/24/17 Ranolazine* (Ranexa*) 500 Mg Tab.sr.12h, 500 MG PO Q12, #60 TAB Prov:TARAS YOUNG 09/24/17 Isosorbide Mononitrate* (Isosorbide Mononitrate*) 30 Mg Tab.er.24h, 30 MG PO DAILY, #60 TAB Prov:TARAS YOUNG 09/24/17 Follow-up Plan 1. See your hand surgeon Dr. Santos in 2-4 weeks. 2. Make an appointment with your primary care doctor in 1-2 weeks. 3. For pressure-like chest discomfort that does not resolve with rest, return to the emergency room. Primary Care Provider Care Physician No Primary Time spent on discharge: > 30 minutes Pending Labs Laboratory Tests Test 09/05/18 13:54 09/05/18 21:30 09/06/18 04:31 09/06/18 04:32 White Blood 7.5 7.0 Count 10^3/ul (4.8-10 10^3/ul (4.8-1 .8) 0.8) Red Blood 4.74 4.35 Count 10^6/ul (4.70-6 10^6/ul (4.70- .10) 6.10) Hemoglobin 13.6 12.5 g/dl (14.0-18.0 g/dl (14.0-18. ) 0) Hematocrit 42.2 39.0 % (42.0-52.0) % (42.0-52.0) Mean 89.0 89.7 Corpuscular fl (82.0-101.0) fl (82.0-101.0 Volume ) Mean 28.7 28.7 Corpuscular pg (29.0-33.0) pg (29.0-33.0) Hemoglobin Mean 32.2 32.1 Corpuscular g/dl (32.0-37.0 g/dl (32.0-37. Hemoglobin Conc ) 0) ent Red Cell 14.6 14.6 Distribution % (11.5-14.5) % (11.5-14.5) Width Platelet Count 189 165 10^3/UL (140-41 10^3/UL (140-4 5) 15) Mean Platelet 12.4 11.7 Volume fl (7.4-10.4) fl (7.4-10.4) Immature 0.300 0.100 Granulocytes % % (0.001-0.429) % (0.001-0.429 ) Neutrophils % 67.8 62.8 % (39.0-77.0) % (39.0-77.0) Lymphocytes % 19.2 22.5 % (15.0-51.0) % (15.0-51.0) Monocytes % 9.9 11.4 % (0.0-11.0) % (0.0-11.0) Eosinophils % 2.3 % (0.0-7.0) 2.6 % (0.0-7.0) Basophils % 0.5 % (0.0-2.0) 0.6 % (0.0-2.0) Nucleated Red 0.0 0.0 Blood Cells % /100WBC (0.0-0. /100WBC (0.0-0 0) .0) Immature 0.020 0.010 Granulocytes # 10^3/ul (0.0-0. 10^3/ul (0.0-0 031) .031) Neutrophils # 5.1 4.4 10^3/ul (1.6-7. 10^3/ul (1.6-7 5) .5) Lymphocytes # 1.4 1.6 10^3/ul (0.8-2. 10^3/ul (0.8-2 9) .9) Monocytes # 0.7 0.8 10^3/ul (0.3-0. 10^3/ul (0.3-0 9) .9) Eosinophils # 0.2 0.2 10^3/ul (0.0-0. 10^3/ul (0.0-0 5) .5) Basophils # 0.0 0.0 10^3/ul (0.0-0. 10^3/ul (0.0-0 1) .1) Nucleated Red 0.0 0.0 Blood Cells # 10^3/ul (0.0-0. 10^3/ul (0.0-0 0) .0) Sodium Level 136 139 mmol/L (135-144 mmol/L (135-14 ) 4) Potassium 5.0 3.8 Level mmol/L (3.5-5.1 mmol/L (3.5-5. ) 1) Chloride Level 105 108 mmol/L (97-110) mmol/L (97-110 ) Carbon Dioxide 20 25 Level mmol/L (21-31) mmol/L (21-31) Anion Gap 11 (5-13) 6 (5-13) Blood Urea 17 mg/dl (7-20) 19 Nitrogen mg/dl (7-20) Creatinine 1.05 1.02 mg/dl (0.61-1.2 mg/dl (0.61-1. 4) 24) Est Glomerular > 60 > 60 Filtrat mL/min (>60) mL/min (>60) Rate mL/min Glucose Level 253 132 mg/dl (70-220) mg/dl (70-220) Calcium Level 9.8 9.3 mg/dl (8.4-10.2 mg/dl (8.4-10. ) 2) Total 0.6 0.4 Bilirubin mg/dl (0.2-1.3) mg/dl (0.2-1.3 ) Direct 0.00 0.00 Bilirubin mg/dl (0.00-0.2 mg/dl (0.00-0. 0) 20) Indirect 0.6 0.4 Bilirubin mg/dl (0-1.1) mg/dl (0-1.1) Aspartate Amino 30 IU/L (15-46) 38 Transf (AST/SGO IU/L (15-46) T) Alanine 29 IU/L (13-69) 34 Aminotransferas IU/L (13-69) e (ALT/SGPT) Alkaline 70 57 Phosphatase IU/L (42-121) IU/L (42-121) Total Protein 7.7 6.7 g/dl (6.1-8.1) g/dl (6.1-8.1) Albumin 4.1 3.6 g/dl (3.3-4.9) g/dl (3.3-4.9) Globulin 3.60 3.10 g/dl (1.3-3.2) g/dl (1.3-3.2) Albumin/Globuli 1.13 1.16 n Ratio Bedside 158 Glucose mg/dL (70-220) KAMILLE CALIXTO MD Sep 06, 2018 12:33
== END 2018-09-06 12:00 | disposition home or self-care (01) ==
LOC: E/R 22:56 → TEL 09-03 01:17 → 5EC 09-05 21:59
PROVIDERS: ADMIT Family Medicine; ATTEND Internal Medicine
DX: R07.9 Chest pain, unspecified (principal); I27.82 Chronic pulmonary embolism; Z79.01 Long term (current) use of anticoagulants; E11.9 Type 2 diabetes mellitus without complications; I25.10 Atherosclerotic heart disease of native coronary artery without angina pectoris; I10 Essential (primary) hypertension; Z95.0 Presence of cardiac pacemaker; Z86.718 Personal history of other venous thrombosis and embolism; E78.5 Hyperlipidemia, unspecified; I49.5 Sick sinus syndrome; Z79.4 Long term (current) use of insulin
CPT/HCPCS: 71045; 80053; 80061; 82306; 82550; 82553; 82962; 83036; 83735; 83880; 84443; 84484; 85025; 93005; 93306; G0378; J1644; J1650; J2270; J2405; 99217

== ENCOUNTER 2018-10-09 23:58 | Emergency (ER) | payer MEDICARE, BC ==
[~2018-10-09] VITALS: Ht 172.7 cm; Wt 92.0 kg
[~2018-10-09 23:58] MED LIST changes: -ATOR20TA65 PO; +ATOR40TA68 PO; +DUTA0.5C16 PO; -ISOS30TA67 PO; -RANO500T2 PO
[2018-10-10 00:04] VITALS: Ht 172.7 cm; Wt 92.0 kg
--- NOTE | 2018-10-10 00:09 | ERD ---
ER Documentation Chief Complaint Chief Complaint Lt CP x 20 min, radiates to lt neck. decreased to 7/10 after NTG x 1 HPI The patient is a 62-year-old male, presenting to the ER because of left-sided chest pain that started about 11:30 PM, non-provoked, radiating to the left side of the neck, had similar symptoms previously. He was visiting a friend nearby the hospital. He was treated with aspirin 160 mg p.o. and 1 nitroglycerin spray by EMS with some response. He denies chest pain with vomiting/radiation/exertion/diaphoresis, dyspnea, abdominal pain, vomiting, dysuria, diarrhea. He does not smoke nor drink. He was admitted in the hospital on September 22, 2017, seen by port drier and recommended cardiac cath but he declined. Past medical history: History of PE, paroxysmal atrial fibrillation, diabetes mellitus, glaucoma, dyslipidemia, BPH Past surgical History: Pacemaker, eye, thrombectomy due to PE ROS All systems reviewed and are negative except as per history of present illness. Medications Home Meds Active Scripts Nitroglycerin* (Nitroglycerin* SL) 0.4 Mg Tab.subl, 0.4 MG SL Q5MIN PRN for CHEST PAIN, #1 BOTTLE Prov:HECTORTARAS 09/24/17 Reported Medications Atorvastatin* (Atorvastatin*) 40 Mg Tablet, 40 MG PO QHS for 30 Days, #30 TAB 09/03/18 Dutasteride (Dutasteride) 0.5 Mg Capsule, 0.5 MG PO DAILY for 30 Days, #30 CAP 09/03/18 Tamsulosin Hcl* (Flomax*) 0.4 Mg Cap.er.24h, 0.4 MG PO DAILY, CAP 06/14/17 Apixaban* (Eliquis*) 5 Mg Tablet, 5 MG PO BID, TAB 06/14/17 Metformin Hcl* (Metformin Hcl*) 500 Mg Tablet, 500 MG PO WITH BREAKFAST DINNE, #60 TAB 06/14/17 Brimonidine Tartrate* (Alphagan*) 0.2%-10 Ml Opht Drops, 1 DROP BOTH EYES Q8, BOTTLE 04/09/14 Travoprost* (Travatan*) 0.004%-2.5 Ml Opht, 1 DROP BOTH EYES HS, EA 04/09/14 Dorzolamide-Timolol* (Cosopt*) 2%-0.5% Soln, 1 DROP BOTH EYES BID, BOTTLE 04/09/14 Allergies Allergies: Coded Allergies: hydromorphone (Verified Allergy, Severe, 09/23/17) too strong for the pt Note: as per pt, Morphine is the choice of drug for pain for him, Dr Portillo is aware coffee (Coffea arabica) (Verified Allergy, Intermediate, 09/23/17) coffee(the drink)- can't tolerate shellfish derived (Verified Allergy, Intermediate, 09/23/17) rash iodine (Unverified Allergy, Unknown, 09/23/17) rash Uncoded Allergies: cereal (Allergy, Unknown, 09/06/18) oatmeal (Allergy, Unknown, 09/06/18) PMhx/Soc History of Surgery: Yes (EYE SX, L.KNEE SX, PACEMAKER PLACEMENT) Anesthesia Reaction: No Hx Neurological Disorder: No Hx Respiratory Disorders: No Hx Cardiac Disorders: Yes ([place], PE, PACEMAKER ) Hx Psychiatric Problems: No Hx Miscellaneous Medical Probl: No Hx Alcohol Use: No Hx Substance Use: No Hx Tobacco Use: No Physical Exam Vitals Vital Signs Date Temp Pulse Resp B/P (MAP) Pulse Ox O2 O2 Flow FiO2 Time Delivery Rate 10/10/18 69 16 106/71 97 Room Air 02:25 (83) 10/10/18 70 16 126/72 97 Room Air 01:00 (90) 10/10/18 98.0 69 17 126/74 97 00:04 (91) Physical Exam Const: No acute distress. Head: Atraumatic. Eyes: Normal Conjunctiva. ENT: Normal External Ears, Nose and Mouth. Neck: Full range of motion. No meningismus. Resp: Clear to auscultation bilaterally. Cardio: Regular rate and rhythm. Abd: Soft, non distended, normal bowel sounds, non tender. Skin: No petechiae or rashes. Back: No midline or flank tenderness. Ext: No cyanosis, or edema. Neur: Awake and alert. No focal deficit Psych: Normal Mood and Affect. Result Diagram: 10/10/18 0029 10/10/18 0029 Results 24 hrs Laboratory Tests Test 10/10/18 00:29 White Blood Count 6.7 10^3/ul Red Blood Count 4.32 10^6/ul Hemoglobin 12.3 g/dl Hematocrit 39.2 % Mean Corpuscular Volume 90.7 fl Mean Corpuscular Hemoglobin 28.5 pg Mean Corpuscular Hemoglobin Concent 31.4 g/dl Red Cell Distribution Width 13.9 % Platelet Count 182 10^3/UL Mean Platelet Volume 12.1 fl Immature Granulocytes % 0.300 % Neutrophils % 65.8 % Lymphocytes % 20.1 % Monocytes % 10.3 % Eosinophils % 3.1 % Basophils % 0.4 % Nucleated Red Blood Cells % 0.0 /100WBC Immature Granulocytes # 0.020 10^3/ul Neutrophils # 4.4 10^3/ul Lymphocytes # 1.4 10^3/ul Monocytes # 0.7 10^3/ul Eosinophils # 0.2 10^3/ul Basophils # 0.0 10^3/ul Nucleated Red Blood Cells # 0.0 10^3/ul Sodium Level 137 mmol/L Potassium Level 4.1 mmol/L Chloride Level 104 mmol/L Carbon Dioxide Level 25 mmol/L Anion Gap 8 Blood Urea Nitrogen 13 mg/dl Creatinine 0.94 mg/dl Est Glomerular Filtrat Rate mL/min > 60 mL/min Glucose Level 201 mg/dl Calcium Level 9.1 mg/dl Troponin I < 0.012 ng/ml Current Medications Medications Dose Sig/Emerita Start Time Status Last (Trade) Ordered Route PRN Stop Time Admin Dose Reason Admin Aspirin 162 mg ONCE ONCE 10/10/18 DC (Aspirin) PO 00:30 10/10/18 00:31 1 inch ONCE ONCE 10/10/18 DC 10/10/18 Nitroglycerin TD 00:30 01:02 10/10/18 00:31 (Nitroglyceri n 2% Oint) Procedures/[place] [address] Radiology Main Line: [phone] DIAGNOSTIC IMAGING REPORT Patient: CHERRIE JUNE : 1955 Age: 62 Sex: M MR #: [id number] DOS: 10/10/18 0010 Ordering MD: HEATHER LIM MD Location: E/R Room/Bed: PROCEDURE: CHEST - 1 VIEW CLINICAL INDICATION: 62-year-old male with chest pain. TECHNIQUE: A single frontal AP portable view of the chest was performed. The images were reviewed on a PACS workstation. COMPARISON: Chest x-ray October 07, 2018 performed at [facility]; Chest x-ray September 18, 2018 performed at [facility] [place]. FINDINGS: There is a left-sided dual chamber pacemaker. The patient has had a prior median sternotomy. The cardiomediastinal silhouette is prominent but within normal limits without significant interval change. There is a shallow inspiration. There is no evidence for an infiltrate. There is no evidence for congestive heart failure. There is no evidence for pneumothorax. There is distended air- filled bowel beneath the left hemidiaphragm. The osseous structures are intact. IMPRESSION: 1. Left-sided dual chamber pacemaker. 2. Status post median sternotomy. .Jluis Baum MD, MD Date Time Electronically viewed and signed by .Jluis Baum MD, MD on 10/10/2018 01:16 .M/ CC: HEATHER LIM MD [phone] EKG: At 12:13 AM read by emergency physician Rate/Rhythm: Normal Sinus Rhythm 66 beats/min QRS, ST, T-waves: No ST elevation, no T inversion Impression: Normal EKG EKG: At 12:13 AM read by emergency physician Rate/Rhythm: Normal Sinus Rhythm 65 beats/min QRS, ST, T-waves: No ST elevation, no T inversion Impression: Normal EKG UDS Pending MEDICAL MAKING DECISION: The patient is a 62-year-old male, presenting with acute chest pain, concerning for acute ACS. He was treated with aspirin 162 mg p.o. and 1 inch of nitroglycerin ointment to the chest wall for acute chest pain The differential diagnoses considered include but are not limited to acute coronary syndrome, acute myocardial infarction, pericarditis, pulmonary embolism, aortic dissection, pneumonia, pleural effusion, pneumothorax, GERD, chest wall pain. Departure Diagnosis: Primary Impression: Chest pain Additional Impression: Anemia Condition: Stable Comments I discussed the findings with the patient. I notified the patient with Dr. Portillo at 2am via [employer], who was made aware of the lab, the treatment, the patient condition. The patient is admitted to [facility] Disclaimer: Inadvertent spelling and grammatical errors are likely due to EHR/dictation software use and do not reflect on the overall quality of patient care. Also, please note that the electronic time recorded on this note does not necessarily reflect the actual time of the patient encounter. HEATHER LIM MD Oct 10, 2018 00:09
[2018-10-10] MEDS ORDERED: NITROGLYCERIN 2% 1 GM OINT PKT TD ONE (00:30)
[2018-10-10] MEDS: ASPIRIN 81 MG TAB PO ONE ×2 (00:59→01:00)
[2018-10-10] MEDS ORDERED: ALBUTEROL/IPRATROPIUM (NEB) 3 ML AMP HHN PRN (03:00)
[2018-10-10] MEDS ORDERED: ONDANSETRON 4 MG INJ IV PRN (03:00)
[2018-10-10] MEDS ORDERED: KETOROLAC 30 MG INJ IV PRN (03:00)
[2018-10-10] MEDS ORDERED: NITROGLYCERIN (SL) 0.4 MG TAB SL PRN (03:00)
[2018-10-10] MEDS ORDERED: NACL 0.9% 3 ML SYG IV SCH (03:00)
[2018-10-10] MEDS ORDERED: ACETAMINOPHEN 325 MG TAB PO PRN (03:00)
[2018-10-10] MEDS: BRIMONIDINE 0.2% 5 ML BTL BOTH EYES SCH ×2 (06:00→09:18)
--- NOTE | 2018-10-10 06:31 | HP ---
Date/Time of Note Date/Time of Note DATE: 10/10/18 TIME: 06:24 Assessment/Plan VTE Prophylaxis SCD applied (from Nsg): Yes Pharmacological prophylaxis: other Lines/Catheters IV Catheter Type (from Nrsg): Saline Lock Assessment/Plan Assessment/Plan 62-year-old male with a history of diabetes, dyslipidemia, ND, pacemaker, PE status post thrombectomy and IVC filter placement, BPH presented to ER with chest pain. Awaiting admission to telemetry unit to rule out ACS. 1. Chest pain -Admit to telemetry unit and rule out ACS. First troponin is negative and EKG without ST-T wave abnormalities. -Patient with history of frequent ED visits for chest pain and frequently appeals hospital discharge when admitted. According to recent discharge summary, previously Dr. Singer had tried to do cardiac cath, but after the patient received 13-hour premedication for contrast dye allergy, he left AMA before the procedure was done. Reportedly he had a stress test on 08/07 at [facility], which was negative for ischemia. -Supplemental oxygen, continue apixaban, statin -Serial troponin -Cardiology consult 2. History of PE, status post thrombectomy and IVC filter -Continue apixaban 3. Type 2 diabetes: Continue metformin 4. Dyslipidemia: Continue statin 5. BPH: Continue home meds Result Diagram: 10/10/18 0029 10/10/18 0029 Results 24hrs Laboratory Tests Test 10/10/18 00:29 10/10/18 03:20 White Blood Count 6.7 Red Blood Count 4.32 L Hemoglobin 12.3 L Hematocrit 39.2 L Mean Corpuscular Volume 90.7 Mean Corpuscular Hemoglobin 28.5 L Mean Corpuscular Hemoglobin Concent 31.4 L Red Cell Distribution Width 13.9 Platelet Count 182 Mean Platelet Volume 12.1 H Immature Granulocytes % 0.300 Neutrophils % 65.8 Lymphocytes % 20.1 Monocytes % 10.3 Eosinophils % 3.1 Basophils % 0.4 Nucleated Red Blood Cells % 0.0 Immature Granulocytes # 0.020 Neutrophils # 4.4 Lymphocytes # 1.4 Monocytes # 0.7 Eosinophils # 0.2 Basophils # 0.0 Nucleated Red Blood Cells # 0.0 Sodium Level 137 Potassium Level 4.1 Chloride Level 104 Carbon Dioxide Level 25 Anion Gap 8 Blood Urea Nitrogen 13 Creatinine 0.94 Est Glomerular Filtrat Rate mL/min > 60 Glucose Level 201 Calcium Level 9.1 Troponin I < 0.012 Urine Opiates Screen Positive Urine Barbiturates Negative Urine Amphetamines Screen Negative Urine Benzodiazepines Screen Negative Urine Cocaine Screen Negative Urine Cannabinoids Negative HPI/ROS Admit Date/Time Admit Date/Time Hx of Present Illness Patient is a 62-year-old male with a history of diabetes, dyslipidemia, ND, pacemaker, PE status post thrombectomy and IVC filter placement, BPH. Patient presents the ER complaining of chest pain. Pain started prior to arrival to the ER while she was sitting in the car. Described as pressure-like, slightly left- sided with radiation to the left arm. With associated shortness of breath. Nitroglycerin with negligible improvement. Patient was last admitted here several weeks ago. According to recent discharge summary, patient with a history of frequent ED visits for chest pain and frequently appeals hospital discharge. Previously Dr. Singer had tried to do cardiac cath, but after the patient received 13-hour premedication for contrast dye allergy, he left AMA before the procedure was done. Reportedly he had a stress test on 08/07 at [facility], which was negative for ischemia. When he presented to the ER this time, vitals were stable. EKG without ST elevation or depression. First troponin is negative. PMH/Family/Social Past Medical History Past Surgical Hx: other (see HPI) Family History Significant Family History: other (see HPI) Social History Alcohol Use: see history Smoking Status: see history Drug Use: see history Exam Constitutional: other (No acute Distress) Head: normocephalic, atraumatic Eyes: PERRL Respiratory: normal air movement Cardiovascular: nl pulses Gastrointestinal: soft Extremities: normal pulses Medications Current Medications IV Flush (NS 3 ml) 3 ml PER PROTOCOL IV ; Start 10/10/18 at 03:00 Ondansetron HCl (Zofran Inj) 4 mg Q6H PRN IV NAUSEA/VOMITING; Start 10/10/18 at 03:00 Nitroglycerin (Nitroglycerin (Sl Tab) 0.4 Mg) 1 tab Q5M PRN SL .CHEST PAIN; Start 10/10/18 at 03:00 Acetaminophen (Tylenol Tab) 650 mg Q6H PRN PO .PAIN 1-3 OR TEMP; Start 10/10/18 at 03:00 Albuterol/ Ipratropium (Duoneb) 3 ml Q2H RESP THERAPY PRN HHN SHORTNESS OF BREATH; Start 10/10/18 at 03:00 Apixaban (Eliquis) 5 mg BID PO ; Start 10/10/18 at 09:00 Atorvastatin Calcium (Lipitor) 40 mg QHS PO ; Start 10/10/18 at 21:00 Brimonidine Tartrate (Alphagan 0.2%) 1 drop Q8 BOTH EYES ; Start 10/10/18 at 06:00 Dutasteride (Avodart) 0.5 mg DAILY PO ; Start 10/10/18 at 09:00 Metformin HCl (Glucophage) 500 mg WITH BREAKFAST DINNE PO ; Start 10/10/18 at 08:00 Tamsulosin HCl (Flomax) 0.4 mg HS PO ; Start 10/10/18 at 21:00 Diagnostic Test (Pha) (Accu-Chek) 1 ea AC MEALS AND BEDTIME XX ; Start 10/10/18 at 07:00 Ketorolac Tromethamine (Toradol) 30 mg Q6H PRN IV pain Last administered on 10/10/18at 03:18; Admin Dose 30 MG; Start 10/10/18 at 03:00; Stop 10/13/18 at 02:59 Latanoprost (Xalatan) 1 drop HS BOTH EYES ; Start 10/10/18 at 21:00 Dorzolamide/ Timolol (Cosopt Pf Eye Drops) 1 drop BID BOTH EYES ; Start 10/10/18 at 09:00 Coded Allergies: hydromorphone (Unverified Allergy, Severe, 10/10/18) too strong for the pt Note: as per pt, Morphine is the choice of drug for pain for him, Dr Portillo is aware coffee (Coffea arabica) (Unverified Allergy, Intermediate, 10/10/18) coffee(the drink)- can't tolerate shellfish derived (Unverified Allergy, Intermediate, 10/10/18) rash iodine (Unverified Allergy, Unknown, 10/10/18) rash Uncoded Allergies: cereal (Allergy, Unknown, 09/06/18) oatmeal (Allergy, Unknown, 09/06/18) Past Surgical History Past Surgical Hx: other Family History Significant Family History: no pertinent family hx Social History Smoking Status: Unknown if ever smoked Exam/Review of Systems Vital Signs Vitals Vital Signs Date Temp Pulse Resp B/P (MAP) Pulse Ox O2 O2 Flow FiO2 Time Delivery Rate 10/10/18 98.1 77 16 108/68 95 Room Air 06:01 (81) CIRO PORTILLO MD Oct 10, 2018 06:31
[2018-10-10] MEDS ORDERED: metFORMIN 500 MG TAB PO SCH (08:00)
[2018-10-10] MEDS ORDERED: APIXABAN 5 MG TABLET PO SCH (09:00)
[2018-10-10] MEDS ORDERED: DUTASTERIDE 0.5 MG CAP PO SCH (09:00)
[2018-10-10] MEDS ORDERED: DORZOLAMIDE/TIMOLOL 10 ML OPH BOTH EYES SCH (09:00)
[2018-10-10] MEDS ORDERED: DORZOLAMIDE/TIMOLOL/PF 0.2 ML DROPERETTE BOTH EYES SCH (09:00)
[2018-10-10] MEDS: ACCU-CHEK XX SCH ×2 (09:00→11:30)
[2018-10-10 10:59] VITALS: BP 107/67; PULSE 62; RESP 17
--- NOTE | 2018-10-10 11:29 | PDOCDIS ---
Discharge Instructions CONDITION [id number] Patient Condition: [id number] Good HOME CARE INSTRUCTIONS: [id number] Diet Instructions: [id number] Regular ACTIVITY: [id number] Activity Restrictions: [id number] No Restrictions FOLLOW UP/APPOINTMENTS Follow-up Plan FOLLOW UP WITH YOUR PRIMARY CARE PHYSICIAN IN 1-2 WEEKS TARAS YOUNG Oct 10, 2018 11:29
[2018-10-10] MEDS ORDERED: LATANOPROST 0.005% 2.5 ML OPH BOTH EYES SCH (21:00)
[2018-10-10] MEDS ORDERED: TRAVOPROST 0.004% 2.5 ML OPH BOTH EYES SCH (21:00)
[2018-10-10] MEDS ORDERED: ATORVASTATIN 40 MG TAB PO SCH (21:00)
[2018-10-10] MEDS ORDERED: TAMSULOSIN (SR) 0.4 MG CAP PO SCH (21:00)
--- NOTE | 2018-10-11 13:41 | DS ---
Date/Time of Note Date/Time of Note DATE: 10/11/18 TIME: 13:38 Discharge Summary Admission/Discharge Info Admit Date/Time October 10, 2018 Discharge Date/Time October 10, 2018 Discharge Diagnosis 1. Chest pain ACS ruled out Patient with multiple hospitalizations for chest pain, patient has left AMA and has had pain seeking behavior during prior hospitalizations Patient had a recent stress test that was reportedly normal and may have had a heart cath that was also reported normal Discussed with cardiology and there is no indication for further work-up 2. History of PE, status post thrombectomy and IVC filter -Continue apixaban 3. Type 2 diabetes: Continue metformin 4. Dyslipidemia: Continue statin 5. BPH: Continue home meds Patient Condition: Good Hospital Course Patient is a 62-year-old male with history of PE, diabetes, dyslipidemia, PE. Patient has had multiple hospitalizations for chest pain with pain seeking behavior, patient is also left AMA prior to heart cath. Patient presents once again with chest pain, ACS was ruled out. Discussed case with cardiology and is no indication for further work-up as patient had a recent stress test that was normal. On day of discharge patient vitals, labs of his exam are stable. Home Meds Active Scripts Nitroglycerin* (Nitroglycerin* SL) 0.4 Mg Tab.subl, 0.4 MG SL Q5MIN PRN for CH EST PAIN, #1 BOTTLE Prov:TARAS YOUNG 09/24/17 Reported Medications Atorvastatin* (Atorvastatin*) 40 Mg Tablet, 40 MG PO QHS for 30 Days, #30 TAB 09/03/18 Dutasteride (Dutasteride) 0.5 Mg Capsule, 0.5 MG PO DAILY for 30 Days, #30 CAP 09/03/18 Tamsulosin Hcl* (Flomax*) 0.4 Mg Cap.er.24h, 0.4 MG PO DAILY, CAP 06/14/17 Apixaban* (Eliquis*) 5 Mg Tablet, 5 MG PO BID, TAB 06/14/17 Metformin Hcl* (Metformin Hcl*) 500 Mg Tablet, 500 MG PO WITH BREAKFAST DINNE, #60 TAB 06/14/17 Brimonidine Tartrate* (Alphagan*) 0.2%-10 Ml Opht Drops, 1 DROP BOTH EYES Q8, BOTTLE 04/09/14 Travoprost* (Travatan*) 0.004%-2.5 Ml Opht, 1 DROP BOTH EYES HS, EA 04/09/14 Dorzolamide-Timolol* (Cosopt*) 2%-0.5% Soln, 1 DROP BOTH EYES BID, BOTTLE 04/09/14 Follow-up Plan FOLLOW UP WITH YOUR PRIMARY CARE PHYSICIAN IN 1-2 WEEKS Primary Care Provider Care Physician No Primary Time spent on discharge: > 30 minutes TARAS YOUNG Oct 11, 2018 13:41
== END 2018-10-10 13:04 | disposition home or self-care (01) ==
LOC: E/R 23:58 → CANBEDREQ 10-10 13:16
DX: D64.9 Anemia, unspecified (principal); E11.9 Type 2 diabetes mellitus without complications; I25.2 Old myocardial infarction; Z79.84 Long term (current) use of oral hypoglycemic drugs; Z95.0 Presence of cardiac pacemaker
CPT/HCPCS: 36415; 71045; 80048; 80307; 82550; 82553; 82962; 84484; 85025; 93005; 96374; 99285; J1885